=== PATIENT | female | born 1975 | race Hispanic/Latino ===

== ENCOUNTER 2017-06-06 17:58 | Emergency (ER) | payer MEDICAID, OTHER | END 2017-06-06 21:48 | disposition home or self-care (01) | LOC: C.ER 17:58 | DX: Z04.41 Encounter for examination and observation following alleged adult rape (principal) | CPT/HCPCS: 80053; 80074; 80324; 80345; 80346; 80349; 80353; 80358; 80361; 81001; 83992; 84703; 85025; 86592; 86703; 86706; 96372; 99285; J0696 ==